=== PATIENT | female | born 1970 | race Caucasian/White ===

== ENCOUNTER 2018-06-29 05:49 | Day surgery (SDC) | payer OTHER, MEDICARE, MEDICAID ==
[~2018-06-29] VITALS: Ht 134.6 cm; Wt 48.6 kg
[~2018-06-29 05:49] MED LIST: ACET650S14 PR; ALBU2.5V2 IH; AMIN30LI7 JT; ASCO500S2 JT; ASPI81 GT; BACL ITH; BACL10TA JT; BALS60OI TP; BISA10SU23 PR; CALC500O JT; CHOL200059 JT; CRAN425C6 JT; DENO60DI SQ; DEXT1DRO OU; DIAZ1KIT RC; DIAZ5 GT; FENO48TA15 GT; FLUC150T66 PO; FLUD.1 JT; FLUT16H NASAL; FOLI1 JT; GABA-531 JT; GABA600T JT; GLYC1TAB11 JT; GUAR1PAC4 JT; IPRA6S NASAL; LEVO25TA9 JT; LEVO50 GT; LORA10TA7 JT; METO25 GT; MIDO2.5T15 JT; MIRALAX JT; MONT10TA21 JT; MULT-723 GT; RINGERS SOLUTION,LACTATED 1,000 ML IV ONE; TOPI200T JT; [UNRECOGNIZED DRUG - CODE] JT
[2018-06-29] MEDS ORDERED: ONDANSETRON HCL 4 MG/2 ML VIAL IVP ONE (05:50)
[2018-06-29] MEDS ORDERED: PROPOFOL 1% 20 ML VIAL IVP ONE (05:50)
[2018-06-29] MEDS ORDERED: LIDOCAINE/PF 2% 5 ML VIAL INJ ONE (05:50)
[2018-06-29] MEDS ORDERED: NALOXONE HCL 0.4 MG/ML VIAL IVP ONE (05:50)
[2018-06-29] MEDS ORDERED: EPHEDrine SULFATE 50 MG/ML VIAL IM ONE (05:50)
[2018-06-29] MEDS ORDERED: RINGERS SOLUTION,LACTATED 1,000 ML IV ONE (07:00)
[2018-06-29] MEDS ORDERED: AMPICILLIN SODIUM 1 GM/VIAL ONE (07:15)
[2018-06-29] MEDS ORDERED: FentaNYL CITRATE-PF 100 MCG/2 ML VIAL IVP PRN (08:15)
[2018-06-29] MEDS ORDERED: FentaNYL CITRATE-PF 100 MCG/2 ML VIAL IVP ONE (12:00)
[2018-06-29] MEDS ORDERED: OXYGEN THERAPY IH SCH (20:00)
== END 2018-06-29 12:55 | disposition home or self-care (01) ==
LOC: SURGERY 05:49
PROVIDERS: ATTEND Dentist General Practice
DX: K05.30 Chronic periodontitis, unspecified (principal); G82.50 Quadriplegia, unspecified; E03.9 Hypothyroidism, unspecified; G40.909 Epilepsy, unspecified, not intractable, without status epilepticus
CPT/HCPCS: 36415; 41899; 84702; J0290; J2310; J2405; J2704; J3010; J3490 ×2; J7120

== ENCOUNTER 2021-11-14 06:05 | Day surgery (SDC) | payer OTHER, MEDICAID ==
[~2021-11-14] VITALS: Ht 137.2 cm; Wt 47.7 kg
[~2021-11-14 06:05] MED LIST changes: +ALBU0.8311 IH; -ALBU2.5V2 IH; +ASPI-1450 GT; -ASPI81 GT; +CHOL200016 JT; -CHOL200059 JT; -DIAZ5 GT; +DIAZ5TAB5 GT; +FENO48TA12 GT; -FENO48TA15 GT; +FLUC150T61 PO; -FLUC150T66 PO; +FOLI-130 JT; -FOLI1 JT; +GABA-1181 JT; -GABA-531 JT; -GLYC1TAB11 JT; +GLYC1TAB27 JT; -MIDO2.5T15 JT; +MIDO2.5T19 JT; +MONT-35 JT; -MONT10TA21 JT; -RINGERS SOLUTION,LACTATED 1,000 ML IV ONE
[2021-11-14 06:51] LABS: COVID AG,FIA SOURCE NASOPHARYNGEAL
[2021-11-14] MEDS ORDERED: AMPICILLIN SODIUM 2 GM/NS 100 ML IV ONE (06:56)
[2021-11-14] MEDS ORDERED: RINGERS SOLUTION,LACTATED 1,000 ML IV ONE ×2 (07:00→07:23)
[2021-11-14 07:35] LABS: BAND NEUTROPHILS % (MANUAL) 0 % (0-5)
[2021-11-14 07:46] LABS: ANION GAP 9 mmol/L (8-16); CARBON DIOXIDE 32 mmol/L (22-29); CHLORIDE 101 mmol/L (98-107); CREATININE 0.57 mg/dL (0.60-1.30); GLOMERULAR FILTR. RATE CALC > 60 mL/min (>60); GLUCOSE,RANDOM 98 mg/dL (70-110); POTASSIUM 3.5 mmol/L (3.5-5.1); SODIUM SERUM 142 mmol/L (136-145); UREA NITROGEN, BLOOD 27 mg/dL (7-18)
[2021-11-14 07:47] LABS: HEMATOCRIT 41.9 % (36-46); HEMOGLOBIN 13.7 g/dL (12.0-16.0); MEAN CORPUSCULAR HEMOGLOBIN 30.8 pg (26.0-34.0); MEAN CORPUSCULAR HGB CONC 32.7 G/dL (31.0-37.0); MEAN CORPUSCULAR VOLUME 94 fL (80-100); PLATELET COUNT (AUTO) 249 K/uL (150-450); RED BLOOD CELL COUNT(AUTO) 4.46 MIL/uL (4.00-5.20); RED CELL DISTRIBUTION WIDTH 16.4 % (11.5-14.5)
[2021-11-14 07:52] LABS: ALANINE AMINOTRANSFERASE 44 U/L (12-78); ALBUMIN 2.6 g/dL (3.4-5.0); ALKALINE PHOSPHATASE 124 U/L (46-116); ASPARTATE AMINOTRANSFERASE 42 U/L (15-37); BILIRUBIN,TOTAL 0.3 mg/dL (0.1-1.0); INR 1.1 (0.9-1.1); PROTHROMBIN TIME 11.9 SEC (9.4-11.6); TOTAL PROTEIN, SERUM 7.9 g/dL (6.4-8.2)
[2021-11-14 08:04] LABS: EOSINOPHILS % (MANUAL) 1 % (1-6); LYMPHOCYTES % (MANUAL) 51 % (22-44); MONOCYTES % (MANUAL) 2 % (2-9); SEGMENTED NEUTROPHILS % 46 % (40-70)
[2021-11-14 08:05] LABS: PLATELET MORPHOLOGY COMMENT GIANT PLTS PRESENT
== END 2021-11-14 09:05 | disposition home or self-care (01) ==
LOC: SURGERY 06:05
PROVIDERS: ATTEND Dentist General Practice
DX: K02.9 Dental caries, unspecified (principal); K05.30 Chronic periodontitis, unspecified; Z53.8 Procedure and treatment not carried out for other reasons; Z79.01 Long term (current) use of anticoagulants; Z79.899 Other long term (current) drug therapy; E03.9 Hypothyroidism, unspecified; G47.33 Obstructive sleep apnea (adult) (pediatric)
CPT/HCPCS: 71045; 87426; 80053; 85007; 85027; 85610; 85730; 36415; 93005; J0290; J7120; C9803